=== PATIENT | male | born 1960 ===

== ENCOUNTER 2018-08-22 09:56 | Emergency (ER) | payer SELFPAY ==
[2018-08-22] MEDS ORDERED: Meclizine 25 MG Tab PO ONE ×2 (10:05→13:34)
[2018-08-22] MEDS ORDERED: Sodium Chloride 0.9% 1,000 ML IV ONE (10:05)
[2018-08-22] MEDS ORDERED: Metoclopramide 10 MG/2 ML SDV IV ONE (10:10)
--- NOTE | 2018-08-22 10:18 | EDM.PDOC ---
ED HPI GENERAL MEDICAL PROBLEM - General Chief Complaint: General Stated Complaint: vertigo Time Seen by Provider: 08/22/18 10:04 Source of Information: Reports: Patient History Limitations: Reports: Language Barrier - History of Present Illness INITIAL COMMENTS - FREE TEXT/NARRATIVE: HISTORY AND PHYSICAL: History of present illness: Patient is a 57-year-old male presents to the ED today via EMS for concern of dizziness, nausea, vomiting, and left lower leg edema/pain. Patient states he feels as if the room is spinning when he has his eyes open and he feels better when his eyes are closed. Patient states he has vomited multiple times since the onset of symptoms. 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 Patient states he had vertigo and that he has had the same symptoms today on multiple other occasions that he has had evaluated in the past. Patient states he has had brain MRI for his vertigo in the past. Patient states over the past week he has noticed an increase in swelling and pain in his left leg. He states he has never had this worked up but that the pain is quite bothersome to him. Patient denies fever, chills, chest pain, shortness of breath, or cough. Denies headache, neck stiff ness, syncope, or near syncope. Denies abdominal pain, diarrhea, constipation, or dysuria. Has not noted any blood in urine or stool. Patient has been eating and drinking appropriately prior to onset of acute symptoms. Review of systems: As per history of present illness and below otherwise all systems reviewed and negative. Past medical history: As per history of present illness and as reviewed below otherwise noncontributory. Surgical history: As per history of present illness and as reviewed below otherwise noncontributory. Social history: See social history for further information Family history: As per history of present illness and as reviewed below otherwise noncontributory. Physical exam: General: Patient is alert, oriented, and in no acute distress. Patient laying comfortably on exam table. He does have several episodes of emesis on exam and tries to keep eyes closed throughout interview. HEENT: Atraumatic, normocephalic, pupils equal and reactive bilaterally, negative for conjunctival pallor or scleral icterus, mucous membranes moist, TMs normal bilaterally, throat clear, neck supple, nontender, trachea midline. No drooling or trismus noted. No meningeal signs. No hot potato voice noted. Lungs: Clear to auscultation, breath sounds equal bilaterally, chest nontender. Heart: S1S2, regular rate and rhythm without overt murmur Abdomen: Soft, nondistended, nontender. Negative for masses or hepatosplenomegaly. Negative for costovertebral tenderness. Pelvis: Stable nontender. Genitourinary: Deferred. Rectal: Deferred. Skin: Intact, warm, dry. No lesions or rashes noted. Extremities: Neurovascular unremarkable. Left calf is moderately edematous compared to the right with generalized splotches of erythema. Pain with palpation of left calf. Dorsalis pedis and posterior tibial pulses grossly intact of bilateral extremities. With capillary refill less than 2 seconds. Patient does have full range of motion of bilateral extremity joints without difficulty. Neuro: Awake, alert, oriented. Cranial nerves II through XII unremarkable. Cerebellum unremarkable. Motor and sensory unremarkable throughout. Exam nonfocal. Notes: Dr. Munoz directly involved in patients care. An appointment was made at the primary care clinic for follow-up for proper therapeutic treatment for DVT. Medications started today and enough given until follow up with PCP can occur. Voices understanding and is agreeable to plan of care. Denies any further questions or concerns at this time. Diagnostics: CBC, CMP, UA, lipase, troponin, EKG, chest x-ray, head CT, venous Doppler lower extremity, cardiac monitor technician Therapeutics: Normal saline, Reglan, Meclizine, Lovenox Prescription: Lovenox, Warfarin, Meclizine Impression: Deep venous thrombosis, left extremity Vertigo Plan: 1. Take medications as prescribed. 2. Follow-up with the primary care appointment we have set up for you today as scheduled and as discussed. 3. Return to the ED as needed and as discussed. Definitive disposition and diagnosis as appropriate pending reevaluation and review of above. 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 [No Known Home Meds] 08/22/18 [History] Past Medical History Neurological History: Reports: Vertigo - Infectious Disease History Infectious Disease History: Reports: None Social & Family History - Family History Family Medical History: Noncontributory - Tobacco Use Smoking Status *Q: Never Smoker - Recreational Drug Use Recreational Drug Use: No ED ROS GENERAL - Review of Systems Review Of Systems: ROS reveals no pertinent complaints other than HPI. ED EXAM, GENERAL - Physical Exam Exam: See Below (See dictation) Course - Vital Signs Last Recorded V/S: Last Vital Signs Temp 35.4 C 08/22/18 10:03 Pulse 55 L 08/22/18 10:03 Resp 18 08/22/18 10:03 BP 149/85 H 08/22/18 10:03 Pulse Ox 96 08/22/18 10:03 - Orders/Labs/Meds Orders: Active Orders 24 hr Category Date Time Status Cardiac Monitoring [RC] . DIRECTED Care 08/22/18 10:05 Active EKG Documentation Completion [RC] STAT Care 08/22/18 10:05 Active Labs: Laboratory Tests 08/22/18 08/22/18 08/22/18 Range/Units 10:15 10:15 10:49 WBC 10.61 (4.0-11.0) K/uL RBC 5.22 (4.50-5.90) M/uL Hgb 14.6 (13.0-17.0) g/dL Hct 43.6 (38.0-50.0) % MCV 83.5 (80.0-98.0) fL MCH 28.0 (27.0-32.0) pg MCHC 33.5 (31.0-37.0) g/dL RDW Std Deviation 42.6 (28.0-62.0) fl RDW Coeff of Matilda 14 (11.0-15.0) % Plt Count 213 (150-400) K/uL MPV 9.70 (7.40-12.00) fL Neut % (Auto) 73.6 (48.0-80.0) % Lymph % (Auto) 19.2 (16.0-40.0) % [place] % (Auto) 6.4 (0.0-15.0) % Eos % (Auto) 0.7 (0.0-7.0) % Baso % (Auto) 0.1 (0.0-1.5) % Neut # (Auto) 7.8 H (1.4-5.7) K/uL Lymph # (Auto) 2.0 (0.6-2.4) K/uL [place] # (Auto) 0.7 (0.0-0.8) K/uL Eos # (Auto) 0.1 (0.0-0.7) K/uL Baso # (Auto) 0.0 (0.0-0.1) K/uL Nucleated RBC % 0.0 /100WBC Nucleated RBCs # 0 K/uL Sodium 140 (136-148) mmol/L Potassium 4.4 (3.5-5.1) mmol/L Chloride 107 (98-107) mmol/L Carbon Dioxide 20.7 L (21.0-32.0) mmol/L BUN 16 (7.0-18.0) mg/dL Creatinine 1.0 (0.8-1.3) mg/dL Est Cr Clr Drug Dosing 75.28 mL/min Estimated GFR (MDRD) > 60.0 ml/min Glucose 132 H (74-106) mg/dL Calcium 8.7 (8.5-10.1) mg/dL Total Bilirubin 0.5 (0.2-1.0) mg/dL AST 17 (15-37) IU/L ALT 25 (14-63) IU/L Alkaline Phosphatase 92 (46-116) U/L Troponin I < 0.050 (0.000-0.056) ng/mL Total Protein 8.0 (6.4-8.2) g/dL Albumin 3.9 (3.4-5.0) g/dL Globulin 4.1 H (2.6-4.0) g/dL Albumin/Globulin Ratio 1.0 (0.9-1.6) Lipase 130 (73-393) U/L Urine Color YELLOW Urine Appearance CLEAR Urine pH 6.0 (5.0-8.0) Ur Specific [place] 1.015 (1.001-1.035) Urine Protein NEGATIVE (NEGATIVE) mg/dL Urine Glucose (UA) NEGATIVE (NEGATIVE) mg/dL Urine Ketones NEGATIVE (NEGATIVE) mg/dL Urine Occult Blood NEGATIVE (NEGATIVE) Urine Nitrite NEGATIVE (NEGATIVE) Urine Bilirubin NEGATIVE (NEGATIVE) Urine Urobilinogen 0.2 (<2.0) EU/dL Ur Leukocyte Esterase NEGATIVE (NEGATIVE) Meds: Medications Discontinued Medications Generic Name Dose Route Start Last Admin Trade Name Freq PRN Reason Stop Dose Admin Enoxaparin Sodium 100 mg 08/22/18 12:14 Lovenox SUBCUT 08/22/18 12:15 ONETIME ONE Sodium Chloride 1,000 mls @ 999 mls/hr 08/22/18 10:05 08/22/18 10:29 Normal Saline IV 08/22/18 11:05 999 mls/hr BOLUS ONE Administration Meclizine HCl 25 mg 08/22/18 10:05 08/22/18 10:35 Antivert PO 08/22/18 10:06 25 mg ONETIME ONE Administration Metoclopramide HCl 10 mg 08/22/18 10:10 08/22/18 10:31 Reglan IV 08/22/18 10:11 10 mg ONETIME ONE Administration Departure - Departure Time of Disposition: 12:25 Disposition: Home, Self-Care 01 Clinical Impression: Deep venous embolism and thrombosis, Vertigo - Discharge Information Instructions: Vertigo, [id number] Referrals: PCP,Unknown [Primary Care Provider] - Forms: ED Department Discharge Additional Instructions: The following information is given to patients seen in the emergency department who are being discharged to home. This information is to outline your options for follow-up care. We provide all patients seen in our emergency department with a follow-up referral. The need for follow-up, as well as the timing and circumstances, are variable depending upon the specifics of your emergency department visit. If you don't have a primary care physician on staff, we will provide you with a referral. We always advise you to contact your personal physician following an emergency department visit to inform them of the circumstance of the visit and for follow-up with them and/or the need for any referrals to a consulting specialist. The emergency department will also refer you to a specialist when appropriate. This referral assures that you have the opportunity for follow-up care with a specialist. All of these measure are taken in an effort to provide you with optimal care, which includes your follow-up. Under all circumstances we always encourage you to contact your private physician who remains a resource for coordinating your care. When calling for follow-up care, please make the office aware that this follow-up is from your recent emergency room visit. If for any reason you are refused follow-up, please contact the [facility] Emergency Department at and asked to speak to the emergency department charge nurse. [facility] [address] [place] [address] [facility] [address] [place] [address] 1. Take medications as prescribed. 2. Follow-up with the primary care appointment we have set up for you today as scheduled and as discussed. 3. Return to the ED as needed and as discussed. - My Orders Last 24 Hours: My Active Orders 08/22/18 10:05 Cardiac Monitoring [RC] . DIRECTED EKG Documentation Completion [RC] STAT - Assessment/Plan Last 24 Hours: My Active Orders 08/22/18 10:05 Cardiac Monitoring [RC] . DIRECTED EKG Documentation Completion [RC] STAT
[2018-08-22 11:12] LABS: CHLORIDE,CL 107 mmol/L (98-107); SODIUM,NA 140 mmol/L (136-148)
--- NOTE | 2018-08-22 11:40 | US ---
ULTRASOUND EXAMINATION OF the left lower extremity WITH DOPPLER HISTORY: Pain FINDINGS: Examination of the left leg was performed from the groin to the calf region. There is a filling defect noted within the proximal femoral vein extending through the popliteal vein into the posterior tibial vein. There is also thrombus noted within the greater saphenous vein. The common femoral vein appears patent. IMPRESSION: 1. Deep vein thrombosis extending from the proximal femoral vein through the popliteal vein into the calf.
--- NOTE | 2018-08-22 11:42 | CR ---
EXAMINATION: PA chest radiograph. HISTORY: Dizziness. FINDINGS: The trachea is midline. The cardiomediastinal silhouette is within normal limits. No pulmonary infiltrates, effusions or pneumothorax. Osseous structures appear unremarkable. IMPRESSION: No acute cardiopulmonary process.
--- NOTE | 2018-08-22 12:08 | CT ---
EXAMINATION: Non contrast CT head. Coronal and sagittal reformats. HISTORY: Pain FINDINGS: No evidence of intra or extra axial hemorrhage, mass, midline shift, hydrocephalus or edema. No hypoattenuation changes in the major vascular territories to suggest acute infarct. No abnormal intracranial calcifications are detected. No evidence of substantial vascular calcifications. Paranasal sinuses and mastoid air cells are well aerated without substantial findings. Pituitary fossa appears unremarkable. The orbits and globes are symmetric. Calvarium is intact. No evidence of skull fracture. IMPRESSION: No acute intracranial findings.
[2018-08-22] MEDS ORDERED: Enoxaparin 100 MG/1 ML Syringe SUBCUT ONE (12:14)
[2018-08-22 13:35] VITALS: BP 118/71
== END 2018-08-22 13:23 | disposition home or self-care (01) ==
LOC: MW.ED 09:56
DX: I82.402 Acute embolism and thrombosis of unspecified deep veins of left lower extremity (principal); R42 Dizziness and giddiness; R11.2 Nausea with vomiting, unspecified
CPT/HCPCS: 36415; 70450; 71045; 80053; 81003; 83690; 84484; 85025; 93005; 93971; 96361; 96372; 96374; 99285; A9270; J1650; J2765; J7040